=== PATIENT | female | born 2000 | race African-American/Black ===

== ENCOUNTER 2023-02-14 13:43 | Emergency (ER) | payer MEDICAID ==
[~2023-02-14] VITALS: Ht 154.9 cm; Wt 58.0 kg
[2023-02-14] MEDS ORDERED: ACETAMINOPHEN 325MG TABLET PO ONE (14:30)
[2023-02-14 14:38] VITALS: BP 135/90
[2023-02-14] MEDS ORDERED: IBUP-2028 MT (16:09)
[2023-02-14] MEDS ORDERED: ACETAMINOPHEN 325MG TABLET PO NR (16:30)
== END 2023-02-14 17:23 | disposition home or self-care (01) ==
LOC: ER 15:42
DX: R51.9 Headache, unspecified (principal); M54.2 Cervicalgia; M54.9 Dorsalgia, unspecified; V49.9XXA Car occupant (driver) (passenger) injured in unspecified traffic accident, initial encounter; Y93.89 Activity, other specified; Y92.89 Other specified places as the place of occurrence of the external cause; Y99.8 Other external cause status
CPT/HCPCS: 72040; 72070; 72100; 99284